=== PATIENT | female | born 1990 | race Two or more races ===

== ENCOUNTER 2020-07-17 20:09 | Emergency (ER) | payer OTHER ==
[~2020-07-17] VITALS: Ht 165.1 cm; Wt 85.0 kg
[~2020-07-17 20:09] MED LIST: LORA10TA75 PO; PREN1TAB60 PO
[2020-07-17 20:18] VITALS: BP 145/70
[2020-07-17] MEDS ORDERED: LIDOCAINE 1%-EPI 1:100K, 20ML ONE (20:45)
[2020-07-17] MEDS ORDERED: LIDOCAINE 1%-EPI 1:100K, 20ML SQ ONE (21:00)
[2020-07-17] MEDS ORDERED: NEOSPORIN OINT. PKT 1 PACKET ONE (21:12)
== END 2020-07-17 21:48 | disposition home or self-care (01) ==
LOC: ED 21:15
DX: S61.210A Laceration without foreign body of right index finger without damage to nail, initial encounter (principal); X58.XXXA Exposure to other specified factors, initial encounter; Y93.89 Activity, other specified; Y92.69 Other specified industrial and construction area as the place of occurrence of the external cause; Y99.0 Civilian activity done for income or pay
CPT/HCPCS: 12041; 99284